=== PATIENT | male | born 1965 | race Caucasian/White ===

== ENCOUNTER 2024-05-14 07:45 | Outpatient (CLI) | payer OTHER, SELFPAY ==
--- OUTSIDE RECORDS SUMMARY | 2024-05-17 07:12 | XMS_ITS | Clinical Summary ---
Author Organization [facility] Address [place], [place] [address] Care Team Providers Care Steam Power Plant Operator Name Role Phone Rafaela Matute MD Primary Care Provider + Allergies No known active allergies Medications Medication Sig Dispensed Refills Start Date End Date Status DULERA 200-5 mcg/actuation inhaler Inhale 2 Puffs by mouth 2 times daily. 8 07/18/2017 Active montelukast (SINGULAIR) 10 mg tablet Take 10 mg by mouth once daily. 1 08/18/2017 Active MEDICAL SUPPLY, MISCELLANEOUS (GRADUATED COMPRESSION STOCKINGS)Indications: Venous insufficiency of right leg For personal use. Length: calf Strength: 20-30 mmHg 8 Packet 2 09/06/2017 Active Social History Tobacco Use Types Packs/Day Years Used Date Smoking Tobacco: Former Smokeless Tobacco: Never Sex and Gender Information Value Date Recorded Sex Assigned at Not on file Gender Identity Not on file Sexual Orientation Not on file Obstetrics History Last Filed Vital Signs Vital Sign Reading Time Taken Comments Blood Pressure 119/80 09/06/2017 3:06 PM CDT Pulse 95 09/06/2017 3:06 PM CDT Temperature 36.6 ??C (97.9 ??F) 09/06/2017 3:06 PM CD T Respiratory Rate - - Oxygen Saturation 96% 09/06/2017 3:06 PM CDT Inhaled Oxygen Concentration - - Weight 155.5 kg (342 lb 14.4 oz) 09/06/2017 3:06 PM CDT Height 183.3 cm (6' 0.15) 09/06/2017 3:06 PM CD T Body Mass Index 46.32 09/06/2017 3:06 PM CDT Plan of Treatment Health Maintenance Due Date Last Done Comments Tdap 1975 Depression screening for age 12+ 1976 HIV for age 15-65 1979 Hepatitis C screening for ag e 18-79 1982 Tetanus booster 1984 Colonoscopy through age 75 2009 Lipids for age 45-75 2009 Zoster (shingles) series for age 50+ (1 of 2) 2014 BMI (ht and wt on same day) for age 18+ 09/06/2018 09/06/2017 COVID-19 vaccine series (2022-24 season) 2023 Influenza for age 50-64 07/21/2024 Pneumococcal series for age 6-64 Aged Out No longer eligible based on patient's age to complete this topic Care Teams Steam Power Plant Operator Relationship Specialty Start Date End Date Rafaela Matute MD [address] [facility] [place] [address] PCP - General Family Practice 09/06/17
== END 2024-05-14 07:46 | disposition home or self-care (01) ==
LOC: NFLDREF 05-17 07:10
PROVIDERS: PCP Family Medicine; Referring Provider Family Medicine; Visit Provider Family Medicine
DX: Z00.00 Encounter for general adult medical examination without abnormal findings (principal); E78.5 Hyperlipidemia, unspecified; E66.01 Morbid (severe) obesity due to excess calories; R79.89 Other specified abnormal findings of blood chemistry; R73.01 Impaired fasting glucose; R53.83 Other fatigue; E55.9 Vitamin D deficiency, unspecified; Z12.5 Encounter for screening for malignant neoplasm of prostate
CPT/HCPCS: 80053; 80061; G0103

== ENCOUNTER 2024-05-17 10:21 | Outpatient (CLI) | payer OTHER, SELFPAY ==
--- OUTSIDE RECORDS SUMMARY | 2024-05-17 10:25 | XMS_ITS | Clinical Summary ---
Author Organization [facility] Address [place], [place] [address] Care Team Providers Care Ski Lift Mechanic Name Role Phone Rafaela Matute MD Primary [...] age to complete this topic Care Teams Ski Lift Mechanic Relationship Specialty Start Date End Date Rafaela Matute MD [address] [facility] [place] [address] PCP - General Family Practice 09/06/17
== END 2024-05-17 10:22 | disposition home or self-care (01) ==
LOC: NFLDREF 10:24
PROVIDERS: PCP Family Medicine; Visit Provider Family Medicine
DX: Z00.00 Encounter for general adult medical examination without abnormal findings (principal); R53.83 Other fatigue; E55.9 Vitamin D deficiency, unspecified; R79.89 Other specified abnormal findings of blood chemistry
CPT/HCPCS: 84443

== ENCOUNTER 2025-07-03 08:10 | Outpatient (CLI) | payer OTHER, SELFPAY | END 2025-07-03 08:11 | disposition home or self-care (01) | LOC: NFLDREF 07-07 17:25 | PROVIDERS: PCP Family Medicine; Referring Provider Family Medicine; Visit Provider Family Medicine | DX: R73.03 Prediabetes (principal); R79.89 Other specified abnormal findings of blood chemistry; E78.5 Hyperlipidemia, unspecified; N40.0 Benign prostatic hyperplasia without lower urinary tract symptoms; Z12.5 Encounter for screening for malignant neoplasm of prostate; Z13.6 Encounter for screening for cardiovascular disorders | CPT/HCPCS: 80053; 80061; G0103 ==